=== PATIENT | male | born 1985 | race Caucasian/White ===

== ENCOUNTER 2019-02-16 11:07 | Day surgery (SDC) | payer OTHER ==
[~2019-02-16 11:07] MED LIST: LIDOCAINE HCL 1% MPF 30 SOL ONE; PROPOFOL 500 MG/50 ML EMU IV ONE
[2019-02-16 13:22] VITALS: RESP 16
[2019-02-16 13:34] VITALS: BP 127/100; PULSE 67; TEMP 97.1; O2SAT 100
== END 2019-02-16 13:49 | disposition home or self-care (01) | DRG 392 ==
LOC: SURG 11:07
PROVIDERS: ATTEND Surgery
DX: K21.9 Gastro-esophageal reflux disease without esophagitis (principal); R05 Cough
CPT/HCPCS: J2001; J2704